=== PATIENT | male | born 1995 | race Caucasian/White ===

== ENCOUNTER 2023-10-21 21:22 | Emergency (ER) | payer OTHER ==
[~2023-10-21] VITALS: Ht 180.3 cm; Wt 85.0 kg
[2023-10-21 21:37] VITALS: O2SAT 97
[2023-10-21 22:46] LABS: BASOPHILS % 0.7 % (0.0-2.0); EOSINOPHILS % 0.4 % (0.0-5.0); HEMATOCRIT. 41.1 % (42.0-52.0); HEMOGLOBIN. 14.1 g/dL (14.0-18.0); LYMPHOCYTES % 37.7 % (20.0-50.0); MEAN CORPUSCULAR HEMOGLOBIN 30.1 pg (28.0-32.0); MEAN CORPUSCULAR HGB CONC 34.3 g/dL (31.0-37.0); MEAN CORPUSCULAR VOLUME 87.8 fL (80.0-94.0); MEAN PLATELET VOLUME 6.4 fl (7.4-10.4); MONOCYTES % 6.2 % (2.0-8.0); PLATELET 247 x1000/uL (130-400); RED BLOOD CELL COUNT 4.68 mill/uL (4.7-6.1); RED CELL DISTRIBUTION WIDTH 13.1 % (11.6-14.6); WHITE BLOOD COUNT 8.4 x1000/uL (4.5-11.0)
[2023-10-21 22:48] LABS: CHLORIDE 109 mEq/L (98-107); POTASSIUM 3.8 mEq/L (3.5-5.1); SODIUM 142 mEq/L (136-145)
[2023-10-21 22:49] LABS: CARBON DIOXIDE 27 mEq/L (21-32)
[2023-10-21 22:50] LABS: CALCIUM 9.9 mg/dL (8.7-10.4)
[2023-10-21 22:54] LABS: GLUCOSE 109 mg/dL (70-105)
[2023-10-21 22:55] LABS: UREA NITROGEN BLOOD 12 mg/dL (9-23)
[2023-10-21 22:56] LABS: ALANINE AMINOTRANSFERASE 58 IU/L (10-49); ALBUMIN 4.6 g/dL (3.2-4.8); ASPARTATE AMINOTRANSFERASE 37 IU/L (<34)
[2023-10-21 22:57] LABS: BILIRUBIN TOTAL 0.5 mg/dL (0.1-1.0)
[2023-10-21 23:15] LABS: CLARITY URINE CLOUDY (CLEAR); COLOR URINE YELLOW (YELLOW); GLUCOSE URINE NEGATIVE (NEGATIVE); KETONES URINE TRACE (NEGATIVE); LEUKOCYTE ESTERASE URINE NEGATIVE (NEGATIVE); NITRITE URINE NEGATIVE (NEGATIVE); OCCULT BLOOD URINE NEGATIVE (NEGATIVE); PH URINE 6.5 (4.5-8.0); PROTEIN URINE NEGATIVE (NEGATIVE); SPECIFIC GRAVITY URINE 1.031 (1.005-1.030)
[2023-10-21 23:23] LABS: *AMPHETAMINES SCREEN URINE NEGATIVE (NEGATIVE); *BARBITURATES SCREEN URINE PRESUMPTIVE POSITIVE (NEGATIVE); *BENZODIAZEPINES SCREEN URINE PRESUMPTIVE POSITIVE (NEGATIVE); *COCAINE SCREEN URINE NEGATIVE (NEGATIVE)
[2023-10-21 23:24] LABS: CANNABINOID URINE SCREEN NEGATIVE (NEGATIVE); ECSTASY MDMA SCREEN URINE NEGATIVE (NEGATIVE); METHADONE URINE SCREEN Pos (NEGATIVE); OPIATES URINE SCREEN NEGATIVE (NEGATIVE); PHENCYCLIDINE URINE SCREEN NEGATIVE (NEGATIVE)
[2023-10-22 00:55] VITALS: BP 145/83; PULSE 103; RESP 18; TEMP 36.94740; O2SAT 99
[2023-10-22 03:39] LABS: BACTERIA URINE NONE SEEN; CALCIUM OXALATE CRYSTALS URINE 1+ /lpf; RBC URINE NONE SEEN /hpf (0-2); SQUAMOUS EPITHELIAL CELL URINE RARE /lpf (RARE/1+); WBC URINE 0-2 /hpf (0-2)
[2023-10-22 03:40] LABS: AMORPHOUS SEDIMENT URINE 1+ /lpf
== END 2023-10-22 01:04 | disposition home or self-care (01) ==
LOC: ER 21:22
DX: K59.00 Constipation, unspecified (principal); I49.9 Cardiac arrhythmia, unspecified; Z98.890 Other specified postprocedural states
CPT/HCPCS: 80053; 80305; 81003; 83690; 85025; 36415; 93005; 99284; 74018; Z7610

== ENCOUNTER 2023-10-26 11:37 | Emergency (ER) | payer OTHER ==
[~2023-10-26] VITALS: Ht 182.9 cm; Wt 79.0 kg
[2023-10-26 11:39] VITALS: O2SAT 98
[2023-10-26 11:49] VITALS: BP 93/62; PULSE 80; RESP 18; TEMP 98.5; O2SAT 99
== END 2023-10-26 13:21 | disposition home or self-care (01) ==
LOC: ER 13:19
DX: R10.9 Unspecified abdominal pain (principal)
CPT/HCPCS: 71045; 93005; 99283

== ENCOUNTER 2023-11-01 02:27 | Emergency (ER) | payer OTHER ==
[~2023-11-01] VITALS: Ht 182.9 cm; Wt 80.0 kg
[2023-11-01 02:35] VITALS: O2SAT 98
[2023-11-01 03:48] LABS: CHLORIDE 108 mEq/L (98-107); SODIUM 143 mEq/L (136-145)
[2023-11-01 03:49] LABS: CALCIUM 8.8 mg/dL (8.7-10.4); CARBON DIOXIDE 31 mEq/L (21-32)
[2023-11-01 03:53] LABS: BASOPHILS % 0.5 % (0.0-2.0); EOSINOPHILS % 1.2 % (0.0-5.0); HEMATOCRIT. 33.3 % (42.0-52.0); HEMOGLOBIN. 11.4 g/dL (14.0-18.0); LYMPHOCYTES % 25.9 % (20.0-50.0); MEAN CORPUSCULAR HEMOGLOBIN 30.2 pg (28.0-32.0); MEAN CORPUSCULAR VOLUME 88.6 fL (80.0-94.0); MEAN PLATELET VOLUME 6.7 fl (7.4-10.4); MONOCYTES % 6.4 % (2.0-8.0); PLATELET 211 x1000/uL (130-400); RED BLOOD CELL COUNT 3.76 mill/uL (4.7-6.1); RED CELL DISTRIBUTION WIDTH 13.2 % (11.6-14.6); WHITE BLOOD COUNT 8.7 x1000/uL (4.5-11.0)
[2023-11-01 03:54] LABS: CREATININE 0.8 mg/dL (0.6-1.3); GLUCOSE 81 mg/dL (70-105); UREA NITROGEN BLOOD 11 mg/dL (9-23)
[2023-11-01 03:56] LABS: ALANINE AMINOTRANSFERASE 36 IU/L (10-49); ALBUMIN 3.7 g/dL (3.2-4.8); ASPARTATE AMINOTRANSFERASE 31 IU/L (<34); BILIRUBIN DIRECT 0.2 mg/dL (<=3.0); BILIRUBIN TOTAL 0.4 mg/dL (0.1-1.0); PROTEIN TOTAL 5.6 g/dL (6.0-8.3)
[2023-11-01] MEDS ORDERED: ACETAMINOPHEN 325MG TABLET PO ONE (07:45)
[2023-11-01] MEDS ORDERED: POLY17PO3 PO (09:11)
[2023-11-01] MEDS ORDERED: TOPUD PO (09:11)
[2023-11-01 10:48] VITALS: BP 122/78; PULSE 88; RESP 18; TEMP 37.05852; O2SAT 98
== END 2023-11-01 10:50 | disposition home or self-care (01) ==
LOC: ER 02:27
DX: R10.9 Unspecified abdominal pain (principal); F19.90 Other psychoactive substance use, unspecified, uncomplicated
CPT/HCPCS: 36415; 80048; 80076; 85025; 99283